=== PATIENT | female | born 1950 | race Caucasian/White ===

== ENCOUNTER 2017-01-24 22:50 | Observation (INO) | payer OTHER ==
--- NOTE | ~2017-01-24 | HP ---
History And Physical [facility] [address] [place]. [address] NAME: SHILPA MARY : 46 STATUS : ADM Randy PAT#: [id number] AGE: 66 ADM/REG DATE : 01/25/17 MR#: [id number] REPORT SERV DATE: 01/25/17 DICTATED BY: ESVIN ELY DATE: 01/25/17 REPORT STATUS : Draft TRANSCRIBED BY: MODL DATE: 01/25/17 DATE OF ADMISSION: 01/25/2017 CHIEF COMPLAINT: Generalized weakness and fall at home. HISTORY OF PRESENT ILLNESS: This is a 66-year-old female with a history of chronic pain, history of coronary artery disease with stent, sick sinus syndrome with pacemaker, bipolar disorder, diabetes mellitus type 2, who had a fall yesterday at home due to generalized weakness and her legs giving way. History is obtained from the patient and reviewing data available on the Zip[employer] system. According to Mrs. Mary and her sister who is at bedside, she had been getting progressively weak in the last month or so. According to her, her primary care physician, Dr. Dugan, had for some reason taken her off her narcotic pain medication maybe because of weakness, but since then, she had in her opinion become increasingly weak to the point she was unable to even walk. Yesterday, she had three falls at home, although she was able to get up, she was so weak she just had to sit down or get in bed. She says since her narcotic pain medications had been discontinued she had been resorting to [id number] ibuprofen tablets which she took four to five at a time several times a day and this had been going on for almost a month now. In the emergency room, initial workup revealed she had acute kidney injury, was hypotensive upon presentation, and had mild hypermagnesemia as well. Hospitalist Service is asked to admit her for further evaluation and treatment. At the time of my evaluation, she denied any chest pain or palpitations. She had no orthopnea. She had no cough recently. Denied any hemoptysis, night sweats, or weight loss. She denied any recent loss of consciousness, although, she had several falls in the last 24 hours or so. No history of recent fevers, chills, nausea, vomiting, or diarrhea. No other history of recent bleeding, hematemesis, hematochezia, or hematuria. No other history of recent travel or exposures other than those mentioned above. PAST MEDICAL HISTORY: Significant for history of coronary artery disease with stents, history of sick sinus syndrome with pacemaker placement, and history of paroxysmal atrial fibrillation. She also has bipolar disorder, diverticulitis, diabetes mellitus type 2, and history of breast cancer. SOCIAL HISTORY: She has about 50-year history of smoking and continues to do so. Denies alcohol use or recreational drug use. 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 FAMILY HISTORY: Noncontributory. MEDICATIONS: At home were reviewed by me in the chart today and reordered by me. REVIEW OF SYSTEMS: As in history of present illness. All other systems were reviewed in detail and are quite History And Physical [address] [place]. [address] NAME: SHILPA MARY : 46 STATUS : ADM Randy PAT#: [id number] AGE: 66 ADM/REG DATE : 01/25/17 MR#: [id number] REPORT SERV DATE: 01/25/17 DICTATED BY: ESVIN ELY DATE: 01/25/17 REPORT STATUS : Draft TRANSCRIBED BY: KRISTEN DATE: 01/25/17 unremarkable. PHYSICAL EXAMINATION: GENERAL: This is a pleasant 66-year-old who appears to be in no significant distress. HEENT: Head appears to be atraumatic, normocephalic. She is alert, awake, and oriented to time, place, and person. Pupils are equal, reacting to light and accommodating. External ocular muscles are intact. Membranes are moist and pink. Sclerae are nonicteric. NECK: Supple with no jugular venous distention, lymphadenopathy, or thyromegaly. LUNGS: Clear to auscultation with no wheezes, rubs, or crackles. HEART: Heart sounds were regular with no murmurs, rubs, or gallops. ABDOMEN: Soft, nontender. Bowel sounds are present. EXTREMITIES: Showed no cyanosis, clubbing, or edema. NEUROLOGIC: Grossly intact. No focal sensory or motor deficits. Higher functions appeared intact. She was able to move all four extremities. VITAL SIGNS: Her vital signs today showed a temperature of 97.4, pulse 69, respirations 18 a minute, blood pressure was 82/43 upon arrival. It had come up to 115/64 at the time of my evaluation. Her oxygen saturations were 95%, breathing 2 L via nasal cannula. LABORATORY DATA: Reviewed on the [employer] system showed a procalcitonin less than 0.5. Sodium was 138, potassium 4.9, chloride 107, CO2 of 22, BUN was 40 with a creatinine of 3.30, which was 0.88 on 09/04/2016. Her GFR today is 14. Blood glucose was 128, calcium 8.9, magnesium 2.5. Her troponin was 0.02. Lactate was 1.2 today. CBC showed a white blood cell count of 10,800. Normal hemoglobin, hematocrit, and platelet count. Urinalysis showed 30 protein, normal leukocyte esterase, nitrite was negative. Films of the chest x- ray were reviewed by me on the PACS today and interpreted by me. There is normal bony architecture with a left-sided pacemaker in place. There are no lobar consolidations or effusions seen. A 12-lead EKG done in emergency room was reviewed and interpreted by me. There is paced rhythm at a rate of 70 without any other changes. IMPRESSION: 1. Generalized weakness. 2. Acute kidney injury secondary to NSAID ingestion. 3. Hypotension. 4. Hypermagnesemia. 5. Coronary artery disease with stent placed. 6. Bipolar disorder. 7. Diabetes mellitus type 2. 8. Paroxysmal atrial fibrillation. 9. Pacemaker placement for sick sinus syndrome. PLAN: We will admit Mrs. Mary to the Hospitalist Service with telemetry for close monitoring for a 24-hour observation period. Her hypotension has resolved with the fluid bolus. We will continue this and monitor her closely. Her systolic blood pressures were greater than 139 at this time. For her acute kidney injury, we will stop her NSAIDs and other nephrotoxic medicines that she is on. Continue volume replacement. Follow chemistry, electrolytes, and proceed accordingly. We will also check her serum cortisol level. We will go ahead and consult Nephrology Service to see her in the morning as well. We will History And Physical [address] [place]. [address] NAME: SHILPA MARY : 46 STATUS : ADM Randy PAT#: [id number] AGE: 66 ADM/REG DATE : 01/25/17 MR#: [id number] REPORT SERV DATE: 01/25/17 DICTATED BY: ESVIN ELY DATE: 01/25/17 REPORT STATUS : Draft TRANSCRIBED BY: KRISTEN DATE: 01/25/17 start her on NovoLog insulin for blood sugar control while she is here and place her on low dose unfractionated heparin for DVT prophylaxis while here. Further recommendations will follow after Nephrology has had a chance to see her and reviewing labs ordered for later at night. I have discussed the above plans with the patient and her family. Questions were answered. They are agreeable to the above recommendations. Hospitalist Service will be following her during her stay here. /KRISTEN Esvin Ely M.D. / [id number] CC: MD Mando Santana II, M.D.
--- NOTE | ~2017-01-24 | DS ---
Discharge Summary [facility] [address] [place]. [address] NAME: SHILPA LAMBERT : 46 STATUS : DIS Randy PAT#: [id number] AGE: 66 ADM/REG DATE : 01/25/17 MR#: [id number] REPORT SERV DATE: 01/27/17 DICTATED BY: DATE: REPORT STATUS : Draft TRANSCRIBED BY: MODL DATE: 01/26/17 ADMISSION DATE: 01/25/2017 DISCHARGE DATE: 01/26/2017 DISCHARGE DIAGNOSES: 1. Hypotension, resolved. 2. Acute kidney injury, resolved. 3. Generalized weakness, likely chronic. 4. Coronary artery disease. 5. Atrial fibrillation/sick sinus syndrome, chronic. 6. Type 2 diabetes. 7. Bipolar disorder. 8. History of breast cancer, status post chemo and radiation therapy. 9. Pain management. CONSULTATIONS: None. PERTINENT TESTING PROCEDURES: 1. Chest x-ray, 01/24/2017, impression: Mild bibasilar atelectasis, otherwise no acute cardiopulmonary abnormality appreciated. Pacemaker device in stable position. 2. Blood cultures x2 sites, specimen collected 01/24/2017. Preliminary result, no growth at one day. 3. Urinalysis, specimen collected 01/24/2017. Results not indicative of urinary tract infection. 4. Urine drug screen, positive for opiates. HOSPITAL COURSE: Please refer to history and physical dated 01/25/[address] Esvin Le for complete details pertaining to patient's history and physical on initial presentation upon admission. Briefly, the patient is a 66-year-old female with a past medical history significant for coronary artery disease, sick sinus syndrome with pacemaker, bipolar disorder, type 2 diabetes, and breast cancer. The patient presented to the emergency department on 01/25/2017 with complaints of generalized weakness and multiple falls at home within 24 hours prior to full emergency department visit. In the emergency room, the initial workup revealed the patient had acute kidney injury, hypotension, and hypermagnesemia. Hospitalist Service admitted for further evaluation and treatment. 1. Hypotension, acute. Upon admission, patient's blood pressure was reported to be 82/43. This was most likely secondary to dehydration. Patient responded well to aggressive IV fluid hydration and now blood pressure has normalized. Systolic blood pressure has actually been elevated between 150 and 190. Patient's metoprolol succinate will be replaced with metoprolol tartrate 50 mg p.o. twice daily. Hold for systolic blood Discharge Summary [facility] [id number] [place]. [address] NAME: SHILPA LAMBERT : 46 STATUS : DIS Randy PAT#: [id number] AGE: 66 ADM/REG DATE : 01/25/17 MR#: [id number] REPORT SERV DATE: 01/27/17 DICTATED BY: DATE: REPORT STATUS : Draft TRANSCRIBED BY: MODL DATE: 01/26/17 pressure less than 105 or heart rate less than 60. 2. Acute kidney injury. Patient has no history of chronic kidney disease. Upon admission, patient's creatinine was reported to be 3.3 and BUN was reported to be 40. Patient reported recent history of significant use of NSAIDs to control back pain. All nephrotoxic medications were held and aggressive IV fluid were administered. Patient's creatinine normalized quickly and BUN and creatinine are stable at 19 and 0.84 today. Patient was educated to avoid all nephrotoxic medications to include anti- inflammatories. 3. Per review of history and physical, patient has complained of increased generalized weakness over the past several weeks reporting multiple falls at home especially within the previous 24 hours prior to admission. Etiology is unclear. May likely be multifactorial to include poor lifestyle choices and multiple comorbidities. Patient has a pacemaker to treat sick sinus syndrome. Interrogation occurred during this admission and no changes were made. Physical Therapy assessed the patient and recommended inpatient rehab. The patient declined stating she needed to be discharged from hospital today due to family issues. Physical Therapy recommended a Rollator for home use which will be available next week. 4. Coronary artery disease. Patient has significant coronary history including 75% stenosis, proximal left circumflex, status post stent to the LAD in [address]elevation [place] in 2013. Patient is on an aspirin and beta hipolito. Patient was very poor historian regarding her medical history and was not able to name her medical affairs leader, although she said she saw someone at [facility]. There is question as to where the patient maintains routine followup. Patient was educated to call [facility] on Saturday for a followup appointment within the next week. 5. Paroxysmal atrial fibrillation/sick sinus syndrome, chronic. Patient is status post pacemaker. Review of medical records in 2013 showed that patient was placed on Eliquis 5 mg p.o. twice daily. Patient stated that she discontinued this medicine 2 months ago secondary to cost issues. Patient stated before this medication was discontinued, she was not taking it as prescribed only taking this medication one time daily. Patient's only anticoagulation is daily aspirin. Pacemaker was interrogated, 29 atrial tachycardia/atrial fibrillation detection episodes. First one occurred on 12/20/2016 and patient is currently in atrial fibrillation which started at 2 a.m. this morning and is ongoing. No changes were made to the device during this interrogation. Patient was educated extensively regarding risk of stroke in the setting of atrial fibrillation with no anticoagulation. Patient is not a candidate for Coumadin at this time secondary to high concern for lack of routine followup. Case Management was consulted regarding Home Health Care medical management. Barrier to home health care included insurance issues. Patient was advised to contact [facility] immediately, 01/28/2017 for appointment as soon as possible for review of atrial fibrillation requiring anticoagulation and pacemaker management. 6. Type 2 diabetes. Patient's blood glucose is controlled. Patient's last A1c was in 08/2016 and was reported to be 6.0. Review of her medical records from 2013 showed that patient to metformin 1000 mg p.o. twice daily; however, patient is no longer on home medications to treat this condition. 7. Bipolar disorder. Continue home medications to include Wellbutrin and clonazepam. 8. Pain management. Patient was recently under pain management secondary to chronic back Discharge Summary [address] [place]. [address] NAME: SHILPA LAMBERT : 46 STATUS : DIS Randy PAT#: [id number] AGE: 66 ADM/REG DATE : 01/25/17 MR#: [id number] REPORT SERV DATE: 01/27/17 DICTATED BY: DATE: REPORT STATUS : Draft TRANSCRIBED BY: MODL DATE: 01/26/17 pain. Patient states she was recently discharged from the clinic due to "missing pills." Patient was referred back to primary care physician for review of pain management needs. Addendum: Patient's metoprolol succinate was changed to metoprolol tartrate 50 mg tablet p.o. twice daily to assist in controlling atrial fibrillation with RVR. DISCHARGE CONDITION: At time of discharge, patient is hemodynamically stable. DISCHARGE DIET: 1800-calorie ADA diet. DISCHARGE MEDICATIONS: 1. Wellbutrin XL 150 mg tablet p.o. daily. 2. Femara 2.5 mg tablet p.o. daily. 3. Lyrica 75 mg tablet p.o. twice daily. 4. Klonopin 0.5 mg tablet p.o. three times daily. 5. Albuterol metered dose inhaler two puffs inhaled as needed for shortness of breath. 6. Motrin 400 to 600 mg tablet p.o. twice daily. Patient was advised to discontinue all anti-inflammatories due to recent acute renal failure. 7. Hydrocodone 10/325 mg tablet one tablet p.o. four times daily as needed. Patient was advised to hold this medication for sedation and no prescription for this medication was given at discharge. 8. Aspirin 81 mg tablet p.o. daily. 9. Metoprolol tartrate 50 mg tablet p.o. twice daily. Hold for heart rate less than 60, systolic blood pressure less than 105. DISCHARGE INSTRUCTIONS: 1. Patient is to call [facility] on 01/28/2017, and schedule followup appointment within one week for management of atrial fibrillation in the setting of no anticoagulation and pacemaker management. 2. Patient is to call and arrange followup appointment with Dr. Dugan, PCP, within one to two weeks for recheck after recent hospitalization. 3. Patient stated that she had to be discharged from the hospital today with no exceptions due to family issues involving [facility]. Patient was educated extensively on the risk of atrial fibrillation in the setting of no anticoagulation. Patient was urged to call as instructed to arrange followup appointment Saturday. 4. Patient was educated to return to the emergency department for any signs or symptoms to include chest pain, uncontrolled palpitations, shortness of breath, syncopal or near syncopal episodes, slurred speech, numbness or tingling to one side of the body, acute onset of weakness to one side of the body or any other signs or symptoms of stroke. DICTATED BY: JESI Collins/KRISTEN Discharge Summary [address] [place]. [address] NAME: SHILPA LAMBERT : 46 STATUS : DIS Randy PAT#: [id number] AGE: 66 ADM/REG DATE : 01/25/17 MR#: [id number] REPORT SERV DATE: 01/27/17 DICTATED BY: DATE: REPORT STATUS : Draft TRANSCRIBED BY: KRISTEN DATE: 01/26/17 Marcela Paige DIRECTOR NICU-C / [id number] CC: MD Mando Santana II, M.D.
[~2017-01-24 22:50] MED LIST: ALTA2.5 PO; ALTA5 PO; ASAB PO; CELEXA40 MG PO; CHANTIX; CHEMO IV; CIP5 PO; CYANO1000T PO; ELIQUIS 5 MG TAB5 MG PO; EPOGEN IV; ESKALITH PO; FEMARA PO; FISH OIL OTC PO; GLUCCHONDR PO; GLUCOPHAGE1000 MG PO; IMDUR30 PO; JANUMET1 TA1 PO; KLONO5 PO; LIPITOR40 PO; LOP25 PO; LOP50 PO; LORT7 PO; LYRICA75 PO; MOBIC15 MG PO; NICODERM C21 MG/241 TOP; NITROSTAT0.4 MG SL; NORCO1 TAB PO; PLAVIX PO; PRAV10 PO; PROAIR HFA INH; TOPXL50 PO; ZOFRAN8 PO
[2017-01-25] LABS: BASOPHILS 0.2 %; BASOPHILS ABSOLUTE 0.02 10/3/uL (0.0-0.16); EOSINOPHILS 2.7 %; EOSINOPHILS ABSOLUTE 0.29 10/3/uL (0.0-0.53); HEMATOCRIT 38.1 % (36.0-48.0); HEMOGLOBIN 12.6 g/dL (12.0-16.0); IMMATURE GRANULOCYTES 0.2 %; IMMATURE GRANULOCYTES ABSOLUTE 0.02 10/3/uL (0.0-0.11); LYMPHOCYTES 24.9 %; LYMPHOCYTES ABSOLUTE 2.69 10/3/uL (0.67-4.30); MEAN CORPUS HGB CONC 33.1 g/dL (32.0-36.0); MEAN CORPUSCULAR HEMOGLOB 29.5 pg (26.0-34.0); MEAN PLATELET VOLUME 9.9 fL (9.2-13.0); MONOCYTES 10.1 %; MONOCYTES ABSOLUTE 1.09 10/3/uL (0.21-1.20); NEUTROPHILS 61.9 %; PLATELET COUNT 203 10/3/uL (150-400); RBC DISTRIBUTION WIDTH 14.6 % (12.0-16.0); RED CELL COUNT 4.27 10/6/uL (4.0-5.6)
[2017-01-25 00:01] LABS: ER CBC TAT 0 Hrs 08 Mins; MANUAL DIFF NO %; MEAN CORPUSCULAR VOLUME 89.2 fL (80-100); WHITE BLOOD CELLS 10.8 10/3/uL (4.5-10.5)
[2017-01-25 00:14] LABS: INTERNATIONAL NORMAL RATI 1.1 UNITS (-); PARTIAL THROMBO TIME 36.1 SEC (22.5-37.2); PROTIME (NOT ORD) 14.5 SEC (12.0-14.5)
[2017-01-25 00:18] LABS: CALCIUM, SERUM 8.9 MG/DL (8.5-10.4); CHEST PAIN PROFILE TAT 0 Hrs 25 Mins; CHLORIDE, SERUM 107 MMOL/L (96-112); POTASSIUM, SERUM 4.9 MMOL/L (3.5-5.3); SODIUM, SERUM 138 MMOL/L (135-148); TROPONIN I <0.02 NG/ML (<0.05)
[2017-01-25 00:22] LABS: BUN (BLOOD UREA NITROGEN) 40 MG/DL (6-23); CO2 (CARBON DIOXIDE) 22 MMOL/L (24-34); GFR AFRICAN AMERICAN 16 ML/MIN (>=60); GFR NON AFRICAN AMERICAN 14 ML/MIN (>=60); GLUCOSE, SERUM 128 MG/DL (60-99)
[2017-01-25 00:23] LABS: LACTATE 1.2 MMOL/L (0.3-2.4)
[2017-01-25 00:27] LABS: ASCORBIC ACID (UR NOT ORDER) NEG (NEG); BILIRUBIN, URINE NEGATIVE (NEG); ER URINALYSIS TAT 0 Hrs 00 Mins; KETONE, URINE NEGATIVE (NEG); LEUKOCYTE ESTERASE(NOT OR NEG (NEG); NITRITE (URINE) NEG (NEG); WBC (NOT ORDERED) (RFLEX) 2 (0-5)
[2017-01-25 00:54] LABS: PROCALCITONIN <0.05 ng/mL (<0.5)
[2017-01-25] MEDS ORDERED: TOPXL50 PO (02:02)
[2017-01-25] MEDS ORDERED: FEMARA PO (02:03)
[2017-01-25] MEDS ORDERED: WELLXL150 PO (02:03)
[2017-01-25] MEDS ORDERED: LYRICA75 PO (02:03)
[2017-01-25] MEDS ORDERED: KLONO5 PO (02:03)
[2017-01-25] MEDS ORDERED: PROVHFA INH (02:04)
[2017-01-25] MEDS ORDERED: MOTRIN IB200 MG PO (02:04)
[2017-01-25] MEDS ORDERED: HALF81 PO (02:04)
[2017-01-25] MEDS ORDERED: NORCO1 TAB PO (02:04)
[2017-01-25 03:30] LABS: BASOPHILS 0.2 %; BASOPHILS ABSOLUTE 0.02 10/3/uL (0.0-0.16); EOSINOPHILS 2.1 %; EOSINOPHILS ABSOLUTE 0.21 10/3/uL (0.0-0.53); HEMATOCRIT 36.7 % (36.0-48.0); HEMOGLOBIN 11.8 g/dL (12.0-16.0); IMMATURE GRANULOCYTES 0.1 %; IMMATURE GRANULOCYTES ABSOLUTE 0.01 10/3/uL (0.0-0.11); LYMPHOCYTES 26.6 %; LYMPHOCYTES ABSOLUTE 2.62 10/3/uL (0.67-4.30); MEAN CORPUS HGB CONC 32.2 g/dL (32.0-36.0); MEAN CORPUSCULAR VOLUME 90.2 fL (80-100); MEAN PLATELET VOLUME 9.8 fL (9.2-13.0); MONOCYTES 6.8 %; MONOCYTES ABSOLUTE 0.67 10/3/uL (0.21-1.20); NEUTROPHILS 64.2 %; NEUTROPHILS ABSOLUTE 6.32 10/3/uL (2.02-8.40); PLATELET COUNT 180 10/3/uL (150-400); RBC DISTRIBUTION WIDTH 14.7 % (12.0-16.0); RED CELL COUNT 4.07 10/6/uL (4.0-5.6); WHITE BLOOD CELLS 9.9 10/3/uL (4.5-10.5)
[2017-01-25 03:35] LABS: MANUAL DIFF NO %
[2017-01-25 03:44] LABS: BUN (BLOOD UREA NITROGEN) 41 MG/DL (6-23); CHLORIDE, SERUM 109 MMOL/L (96-112); CO2 (CARBON DIOXIDE) 20 MMOL/L (24-34); CREATININE 2.86 MG/DL (0.55-1.02); GFR AFRICAN AMERICAN 19 ML/MIN (>=60); GFR NON AFRICAN AMERICAN 16 ML/MIN (>=60); GLUCOSE, SERUM 126 MG/DL (60-99); PHOSPHORUS, SERUM 5.7 MG/DL (2.5-4.5); POTASSIUM, SERUM 4.2 MMOL/L (3.5-5.3); SODIUM, SERUM 138 MMOL/L (135-148)
[2017-01-25 13:08] LABS: CREATININE, URINE 30.3 MG/DL
[2017-01-25 17:25] LABS: AMPHETAMINES (NOT ORD) NEG (NEG); BARBITURATES (NOT ORDERED NEG (NEG); BENZODIAZEPINES (NOT ORD) NEG (NEG); CANNABINOIDS (THC) NEG (NEG); COCAINE (NOT ORDERED) NEG (NEG); OPIATES POS (NEG); PHENCYCLIDINE(PCP) NEG (NEG); TRICYCLICS NEG (NEG)
[2017-01-26 05:46] LABS: BASOPHILS 0.2 %; BASOPHILS ABSOLUTE 0.01 10/3/uL (0.0-0.16); EOSINOPHILS 1.5 %; EOSINOPHILS ABSOLUTE 0.07 10/3/uL (0.0-0.53); HEMOGLOBIN 10.6 g/dL (12.0-16.0); LYMPHOCYTES 35.3 %; LYMPHOCYTES ABSOLUTE 1.62 10/3/uL (0.67-4.30); MEAN CORPUS HGB CONC 32.9 g/dL (32.0-36.0); MEAN CORPUSCULAR HEMOGLOB 29.2 pg (26.0-34.0); MEAN CORPUSCULAR VOLUME 88.7 fL (80-100); MEAN PLATELET VOLUME 10.1 fL (9.2-13.0); MONOCYTES 8.9 %; MONOCYTES ABSOLUTE 0.41 10/3/uL (0.21-1.20); NEUTROPHILS 54.1 %; NEUTROPHILS ABSOLUTE 2.48 10/3/uL (2.02-8.40); PLATELET COUNT 138 10/3/uL (150-400); RBC DISTRIBUTION WIDTH 14.6 % (12.0-16.0); RED CELL COUNT 3.63 10/6/uL (4.0-5.6)
[2017-01-26 05:51] LABS: HEMATOCRIT 32.2 % (36.0-48.0); MANUAL DIFF NO %; WHITE BLOOD CELLS 4.6 10/3/uL (4.5-10.5)
[2017-01-26 05:59] LABS: CALCIUM, SERUM 8.2 MG/DL (8.5-10.4); CHLORIDE, SERUM 119 MMOL/L (96-112); CO2 (CARBON DIOXIDE) 19 MMOL/L (24-34); GLUCOSE, SERUM 108 MG/DL (60-99)
[2017-01-26 06:03] LABS: ALBUMIN 2.9 G/DL (3.5-5.0); BUN (BLOOD UREA NITROGEN) 19 MG/DL (6-23); CREATININE 0.84 MG/DL (0.55-1.02); GFR AFRICAN AMERICAN 83 ML/MIN (>=60); GFR NON AFRICAN AMERICAN 71 ML/MIN (>=60); PHOSPHORUS, SERUM 2.6 MG/DL (2.5-4.5); SODIUM, SERUM 145 MMOL/L (135-148)
[2017-01-26] MEDS ORDERED: LOP50 PO (17:22)
== END 2017-01-26 19:38 | disposition home or self-care (01) ==
LOC: ER 22:50 → 7NO 01-25 01:54
PROVIDERS: Emergency Medicine; Internal Medicine; Internal Medicine Pulmonary Disease; Nurse Practitioner Family
DX: I95.9 Hypotension, unspecified (principal); N17.9 Acute kidney failure, unspecified; R53.1 Weakness; I25.10 Atherosclerotic heart disease of native coronary artery without angina pectoris; I48.2 Chronic atrial fibrillation; I49.5 Sick sinus syndrome; E11.9 Type 2 diabetes mellitus without complications; F31.9 Bipolar disorder, unspecified; F17.200 Nicotine dependence, unspecified, uncomplicated; Z85.3 Personal history of malignant neoplasm of breast; Z92.21 Personal history of antineoplastic chemotherapy; Z98.890 Other specified postprocedural states; Z95.0 Presence of cardiac pacemaker; Z88.5 Allergy status to narcotic agent; Z88.6 Allergy status to analgesic agent; Z91.040 Latex allergy status; Z79.811 Long term (current) use of aromatase inhibitors; Z79.82 Long term (current) use of aspirin; Z79.899 Other long term (current) drug therapy
CPT/HCPCS: 71010; 80048; 80069; 80305; 81001; 82533; 82570; 82962; 83605; 83735; 84100; 84145; 84300; 84484; 85025; 85610; 85730; 87040; 93005; 96372; 96374; 97162-GP; 99291; A9270-GY; G0378; J0610